=== PATIENT | female | born 1985 | race Caucasian/White ===

== ENCOUNTER 2018-09-05 19:54 | Outpatient (REF) | payer OTHER, SELFPAY | END 2018-09-05 20:14 | LOC: LBN 19:54 | PROVIDERS: PCP Family Medicine; Visit Provider Internal Medicine | DX: R30.0 Dysuria (principal) | CPT/HCPCS: 87077; 87086; 87186 ==

== ENCOUNTER 2019-11-11 12:13 | Outpatient (REF) | payer OTHER, SELFPAY ==
--- NOTE | 2019-11-11 | PAPFT_PTH ---
PATIENT: Jory Locke LOC: [facility] U#:[id number] AGE/SX: 34/F ROOM: RE11/11/[address]: Ryanne Hussein MD : 1985 BED: DIS: 11/11/2019 SPEC #: [id number] RECD: 11/11/19 18:17 STATUS: JAYRO RECornelio #: [id number] ADELE: 11/11/19 00:[address]: Ryanne Hussein DEPT: PENDING SALE TO [facility] Cytology RECD BY: Rachel Núñez Tissues: 1 - CX/ENDOCX FOR PAP SMEARS Procedures: PAP THIN PREP/UVM Screening HPV DNA PROBE Comments: [id number]
== END 2019-11-11 12:33 ==
LOC: LBN 12:13
PROVIDERS: PCP Family Medicine; Visit Provider Family Medicine
DX: Z12.4 Encounter for screening for malignant neoplasm of cervix (principal); Z11.51 Encounter for screening for human papillomavirus (HPV)
CPT/HCPCS: 88142; 87624

== ENCOUNTER 2020-12-23 02:18 | Outpatient (CLI) | payer OTHER, SELFPAY ==
--- NOTE | 2020-12-23 07:30 | DI.US_ITS ---
EXAM: US PELVIS TRANSVAGINAL CLINICAL HISTORY: RLQ pain, check IUD position,R10.31,Z30.430. TECHNIQUE: Transabdominal and transvaginal pelvic ultrasound was performed using standard protocol. COMPARISON: No exams were available for comparison FINDINGS: KIDNEYS: Kidneys are symmetric in size. No evidence of renal calculi. No evidence of hydronephrosis. No renal mass or cyst identified. UTERUS: Position: Anteverted. Size: 7.0 long by 2.9 AP by 4.4 transverse cm Endometrium: 0.4 cm. Normal for patient's menstrual status. The IUD is in good position. Myometrium: Unremarkable. Cervix: Nabothian cysts are present. OVARIES: Right: 3.5 x 1.4 x 1.5 cm Cyst or mass: Small functional cysts are present. Left: 3.4 x 2.1 x 1.7 cm Cyst or mass: Small functional cysts are present including a 2.2 x 1.5 x 1.8 cm complex cyst probably reflecting a hemorrhagic or involuting corpus luteal cyst. DOPPLER: Color: Symmetric and uniform flow to both ovaries. No hyperemia. Duplex: Normal ovarian arterial waveforms visualized. CUL-DE-SAC: Free fluid: None. Other: None. IMPRESSION: 1. Normal sonographic appearance of the kidneys. 2. Normal-appearing uterus with endometrial stripe within normal limits. 3. IUD is in good position. 4. Unremarkable bilateral ovaries. DATA REPOSITORY:
--- NOTE | 2020-12-23 07:30 | DI.US_ITS ---
EXAM: US HERNIA CLINICAL HISTORY: Right inguinal pain,RLQ PAIN. TECHNIQUE: Ultrasound was performed using standard protocol. COMPARISON: No exams were available for comparison FINDINGS: Sonographic assessment utilizing grayscale and color Doppler imaging was performed and targeted to th e area of clinical concern. There is no sonographic evidence of a right inguinal hernia. The right lower quadrant of the abdomen was not evaluated sonographically. No sonographic evidence of an acute appendicitis is seen. A frederic ign-appearing 1.2 x 0.4 x 0.9 cm right inguinal lymph node is seen. IMPRESSION: Unremarkable examination. No sonographic evidence of a right inguinal hernia. DATA REPOSITORY:
== END 2020-12-23 02:19 | disposition home or self-care (01) ==
LOC: DI 02:18
PROVIDERS: PCP Family Medicine; Visit Provider Obstetrics & Gynecology
DX: R10.31 Right lower quadrant pain (principal); Z97.5 Presence of (intrauterine) contraceptive device
CPT/HCPCS: 76857; 76830; 76856

== ENCOUNTER 2022-05-19 02:16 | Outpatient (CLI) | payer MEDICAID, SELFPAY ==
[2022-05-19 13:58] LABS: Anion Gap 8.5 mmol/L (3-11); BUN 14 mg/dL (7-18); CO2 25.5 mmol/L (21.0-32.0); CREATININE 0.9 mg/dL (0.55-1.02); Calcium 9.2 mg/dL (8.5-10.1); Chloride 104 mmol/L (98-107); Glucose 92 mg/dL (74-106); Potassium 4.2 mmol/L (3.5-5.1); Sodium 138 mmol/L (136-145)
[2022-05-19 15:26] LABS: Calculated LDL 115 mg/dL (<100); Cholesterol 207 mg/dL (<200); HDL Cholesterol 82 mg/dL (40-60); Triglyceride 51 mg/dL (<150)
== END 2022-05-19 02:17 | disposition home or self-care (01) ==
LOC: LOS 02:16
DX: Z13.220 Encounter for screening for lipoid disorders (principal); Z00.00 Encounter for general adult medical examination without abnormal findings
CPT/HCPCS: 36415; 80048; 80061

== ENCOUNTER 2022-09-12 10:50 | Outpatient (REF) | payer MEDICAID, SELFPAY ==
--- NOTE | 2022-09-12 10:00 | PAPFT_PTH ---
PATIENT: Jory Locke LOC: [facility] U#:[id number] AGE/SX: 37/F ROOM: RE09/12/[address]: Caitlin Novak NP : 1985 BED: DIS: 09/12/2022 SPEC #: [id number] RECD: 09/12/22 12:57 STATUS: JAYRO RECornelio #: [id number] ADELE: 09/12/22 10:[address]: Caitlin Novak NP DEPT: [facility] Cytology RECD BY: Rachel Núñez ENTERED: 09/12/22 12:57 SP TYPE: PAPFT OTHR DR: Evonne Valle APRN Tissues: 1 - CX/ENDOCX FOR PAP SMEARS Procedures: PAP THIN PREP/UVM Screening HPV DNA PROBE Comments: [id number]
== END 2022-09-12 10:51 | disposition home or self-care (01) ==
LOC: LBN 10:50
PROVIDERS: Visit Provider Nurse Practitioner Women's Health
DX: Z12.4 Encounter for screening for malignant neoplasm of cervix (principal)
CPT/HCPCS: 88142; 87624

== ENCOUNTER 2024-10-02 08:32 | Outpatient (REF) | payer BC, SELFPAY ==
--- NOTE | 2024-10-02 08:10 | PAPFT_PTH ---
PATIENT: Jory Locke LOC: [facility] U#:[id number] AGE/SX: 39/F ROOM: RE10/02/[address]: Caitlin Novak NP : 1985 BED: DIS: 10/02/2024 SPEC #: [id number] RECD: 10/02/24 12:50 STATUS: JAYRO RECornelio #: [id number] ADELE: 10/02/24 08:[address]: Caitlin Novak NP DEPT: [facility] Cytology RECD BY: Rachel Núñez ENTERED: 10/02/24 12:50 SP TYPE: PAPFT OTHR DR: Kaylee Cuenca, ENGINEERING PROGRAM ANALYST Tissues: 1 - CX/ENDOCX FOR PAP SMEARS Procedures: PAP THIN PREP/UVM Screening HPV DNA PROBE Comments: [id number] (HPV 16 & 18/45)
== END 2024-10-02 08:33 | disposition home or self-care (01) ==
LOC: LBN 08:32
PROVIDERS: PCP Nurse Practitioner Family; Visit Provider Nurse Practitioner Women's Health
DX: Z12.4 Encounter for screening for malignant neoplasm of cervix (principal)
CPT/HCPCS: 88142; 87624

== ENCOUNTER 2025-01-06 02:06 | Outpatient (CLI) | payer BC, SELFPAY ==
[2025-01-06 12:32] LABS: Calculated LDL 98 mg/dL (<100); Cholesterol 196 mg/dL (<200); HDL Cholesterol 88 mg/dL (40-60); Triglyceride 53 mg/dL (<150)
== END 2025-01-06 02:07 | disposition home or self-care (01) ==
LOC: LOS 02:06
PROVIDERS: PCP Nurse Practitioner Family; Visit Provider Nurse Practitioner Family
DX: Z00.00 Encounter for general adult medical examination without abnormal findings (principal); E78.5 Hyperlipidemia, unspecified
CPT/HCPCS: 36415; 80061

== ENCOUNTER 2025-10-14 01:43 | Outpatient (CLI) | payer BC, MEDICAID, SELFPAY ==
[2025-10-14 15:34] LABS: Abs Immature Grans 0.03 10^3/uL (0.0-0.06); HCT 37.4 % (36.0-46.0); HGB 13.2 g/dL (11.2-15.7); Immature Grans % 0.3 %; MCH 30.1 pg (27.0-33.0); MCHC 35.3 % (32.0-36.0); MCV 85 fL (80-95); MPV 9.6 fL (8.0-11.0); Platelet Count 210 10^3/uL (130-400); RBC 4.39 10^6/uL (3.93-5.22); RDW 12.4 % (11.7-14.6); RDW-SD 38.5 fL; WBC 11.28 10^3/uL (4.4-10.8)
[2025-10-14 16:37] LABS: TSH (W/Ref FT4) 3.16 uIU/mL (0.55-4.78)
[2025-10-15 09:43] LABS: Hepatitis C Ab w Rflx HCV PCR Negative (Negative)
[2025-10-15 09:47] LABS: HIV-1/2 Ag & Ab Screen Negative (Negative)
[2025-10-15 11:17] LABS: Rubella IgG Ab (UVM) Positive (See Note)
[2025-10-19 12:46] LABS: Syphilis IgG w/Reflex Nonreactive (Nonreactive)
== END 2025-10-14 01:44 | disposition home or self-care (01) ==
LOC: LBO 01:43
PROVIDERS: PCP Nurse Practitioner Family; Visit Provider Advanced Practice Midwife
DX: Z34.91 Encounter for supervision of normal pregnancy, unspecified, first trimester
CPT/HCPCS: 36415; 81220; 81222; 86787; 86803; 86850; 86900; 86901; 87340; 87389; 84443; 85025; 86762; 86780

== ENCOUNTER 2025-10-14 14:57 | Outpatient (REF) | payer MEDICAID, SELFPAY ==
[2025-10-15 11:56] LABS: Chlamydia Result Negative (Negative); GC Result Negative (Negative)
== END 2025-10-14 14:58 | disposition home or self-care (01) ==
LOC: LBN 14:57
PROVIDERS: PCP Nurse Practitioner Family; Visit Provider Advanced Practice Midwife
DX: Z34.91 Encounter for supervision of normal pregnancy, unspecified, first trimester (principal)
CPT/HCPCS: 87491; 87591; 87086

== ENCOUNTER 2025-11-11 14:35 | Outpatient (CLI) | payer MEDICAID, SELFPAY ==
[2025-11-17 13:42] LABS: AFP 43.7 ng/mL; Prev Pregnancy w/NTD No; RECOMMENDED FOLLOW UP None.
== END 2025-11-11 14:36 | disposition home or self-care (01) ==
LOC: LBO 11-26 14:35
PROVIDERS: PCP Nurse Practitioner Family; Visit Provider Advanced Practice Midwife
DX: Z34.91 Encounter for supervision of normal pregnancy, unspecified, first trimester (principal)
CPT/HCPCS: 36415; 82105